=== PATIENT | male | born 1985 | race Caucasian/White ===

== ENCOUNTER 2018-06-18 08:58 | Emergency (ER) | payer OTHER ==
--- NOTE | 2018-06-18 10:02 | UC ---
Respiratory Complaint HPI - HPI Summary HPI Summary: HAD A URI A FEW WEEKS AGO WHICH RESOLVED. WAS WELL FOR ABOUT A WEEK OR SO BUT THEN LAST WEEK DEVELOPED COUGH, CONGESTION, ST AND SINUS PRESSURE. NO FEVER, N/ V. STATES HS SX ARE ACTUALLY IMPROVING BUT WAS WORRIED ABOUT THE BACK TO BACK ILLNESSES SO WANTED TO BE CHECKED OUT. - History of Current Complaint Chief Complaint: UCRespiratory Stated Complaint: COUGH CONGESTION Time Seen by Provider: 06/18/18 09:46 Hx Obtained From: Patient Onset/Duration: Gradual Onset, Lasting Days, Still Present - BUT IMPROVING Timing: Constant Severity Initially: Moderate Severity Currently: Mild Pain Intensity: 2 Pain Scale Used: 0-10 Numeric Character: Cough: Nonproductive Aggravating Factors: Nothing Alleviating Factors: Spontaneous Resolution Associated Signs And Symptoms: Positive: URI, Nasal Congestion, Sinus Discomfort. Negative: Dyspnea, Fever, Chills, Wheezing - Allergies/Home Medications Allergies/Adverse Reactions: Allergies Allergy/AdvReac Type Severity Reaction Status Date / Time beer Allergy Congestion Uncoded 06/18/18 09:17 environmental Allergy Eyes Uncoded 06/18/18 09:17 Itchy/Swollen/Red/Watery Home Medications: Home Medications NK [No Home Medications Reported] 06/18/18 [History Confirmed 06/18/18] PMH/Surg Hx/FS Hx/Imm Hx Previously Healthy: Yes - Surgical History Surgical History: Yes Surgery Procedure, Year, and Place: nasal surgery for polyp removal - Family History Known Family History: Positive: Cardiac Disease - Social History Alcohol Use: Occasionally Substance Use Type: None Smoking Status (MU): Former Smoker Review of Systems Constitutional: Fatigue ENT: Sore Throat, Nasal Discharge, Sinus Congestion Respiratory: Cough Cardiovascular: Negative Gastrointestinal: Negative All Other Systems Reviewed And Are Negative: Yes Physical Exam Triage Information Reviewed: Yes Appearance: Well-Appearing, No Pain Distress, Well-Nourished Vital Signs: Initial Vital Signs Temp 98.2 F 06/18/18 09:10 Pulse 71 06/18/18 09:10 Resp 18 06/18/18 09:10 BP 163/85 06/18/18 09:10 Pulse Ox 100 06/18/18 09:10 Vital Signs Reviewed: Yes Eyes: Positive: Conjunctiva Clear ENT: Positive: Hearing grossly normal, Pharynx normal, TMs normal Neck: Positive: Supple, Nontender, No Lymphadenopathy Respiratory Exam: Normal Cardiovascular Exam: Normal Abdomen Description: Positive: Soft Musculoskeletal: Positive: No Edema Neurological: Positive: Alert Psychological: Positive: Age Appropriate Behavior Skin: Negative: rashes UC Diagnostic Evaluation - Laboratory O2 Sat by Pulse Oximetry: 100 Respiratory Course/Dx - Differential Dx/Diagnosis Provider Diagnoses: ACUTE URI Discharge - Sign-Out/Discharge Documenting (check all that apply): Patient Departure - Discharge Plan Condition: Stable Disposition: HOME Patient Education Materials: Upper Respiratory Infection (ED) Forms: *Work Release Referrals: No Primary Care Phys,NOPCP [Primary Care Provider] - Additional Instructions: YOUR SYMPTOMS ARE LIKELY VIRALLY MEDIATED AND SHOULD CONTINUE TO IMPROVE. NO INDICATION FOR ANTIBIOTICS AT PRESENT. REST, HYDRATE, OTC MEDS NEEDED. SEEK FOLLOW-UP IF YOU ARE NOT CONTINUING IMPROVE. YOUR BLOOD PRESSURE WAS ELEVATED TODAY (163/85). THIS MAY BE DUE TO YOUR ACUTE CONDITION. MONITOR AND FOLLOW-UP WITH A PCP WITHIN 4 WEEKS IF IT HAS NOT RETURNED TO NORMAL. CALL THE NUMBER BELOW FOR ASSISTANCE IN ESTABLISHING WITH A PCP An additional resource available to assist in finding the appropriate physician for your health care needs is [facility] ([facility]). You may contact them by calling [phone]. - Billing Disposition and Condition Condition: STABLE Disposition: Home
== END 2018-06-18 10:15 | disposition home or self-care (01) ==
LOC: UCEAST 08:58
DX: J06.9 Acute upper respiratory infection, unspecified (principal); Z91.048 Other nonmedicinal substance allergy status; Z87.891 Personal history of nicotine dependence
CPT/HCPCS: 99201; G0463